=== PATIENT | male | born 1930 | race Caucasian/White ===

== ENCOUNTER → 2017-05-02 | Outpatient (CLI) | payer MEDICARE, OTHER ==
--- NOTE | 2017-05-02 13:38 | RAD ---
Exam performed: 2 views of the chest. Indication: CHEST TUBE IN PLACE Date of Service:05/02/2017 2:00 AM . Comparison : None available. Findings: PA and lateral radiographs of the chest reveal a normal cardiomediastinal contour. There is a right-sided pigtail catheter projecting in the right apex with adjacent linear opacity likely atelectasis. There is blunting of the right costophrenic angle suggesting small effusion. The left lung is clear. Both lungs are somewhat hyperinflated there is no pneumothorax. There are surgical clips in the right paratracheal region with signs of volume loss in the right apex. The visualized osseous structures are unremarkable. Impression: Right-sided chest tube with linear opacities likely atelectasis or scarring in the right apex. Small right pleural effusion. No definite evidence of pneumothorax seen.
== END | disposition home or self-care (01) ==
LOC: RAD 11:49
PROVIDERS: ATTEND Nurse Practitioner
DX: J90 Pleural effusion, not elsewhere classified (principal); Z78.9 Other specified health status
CPT/HCPCS: 71020